=== PATIENT | female | born 1985 | race Caucasian/White ===

== ENCOUNTER 2016-09-28 10:30 | Emergency (ER) | payer MEDICAID, OTHER ==
[~2016-09-28] VITALS: Ht 160 cm; Wt 63.0 kg
[~2016-09-28 10:30] MED LIST: CIPR500T4 PO
[2016-09-28 10:31] VITALS: Ht 160 cm; Wt 63.0 kg
[2016-09-28] MEDS ORDERED: ACETAMINOPHEN 500 MG TAB PO STA (10:53)
[2016-09-28] MEDS ORDERED: IBUPROFEN 600 MG TAB PO ONE (11:00)
--- NOTE | 2016-09-28 11:01 | ERD ---
ER Documentation Chief Complaint Date/Time DATE: 09/28/16 TIME: 10:59 Chief Complaint FLU LIKE SYMPTOMS SINCE MONDAY, BODY ACHES, FEVER HPI 30-year-old female otherwise healthy comes emergency department history of fever for the past 2 days with generalized myalgias, and bilateral flank pain. She states that she had a temperature that started after returning from [place] on Monday, she has been taking Tylenol and the last time was at 3 AM this morning. She complains of frontal headache, generalized body pains. She has not had any cough, runny nose, sore throat. She denies vomiting or diarrhea. She reports that her regular vaccinations are up-to-date. ROS All systems reviewed and are negative except as per history of present illness. Medications Home Meds Active Scripts Ibuprofen* (Motrin*) 600 Mg Tab, 600 MG PO Q6, #30 TAB Prov:DAMON RICHARDSON PA-C 09/28/16 Cephalexin* (Keflex*) 500 Mg Capsule, 500 MG PO TID for 10 Days, CAP Prov:DAMON RICHARDSON PA-C 09/28/16 Ciprofloxacin Hcl* (Ciprofloxacin Hcl*) 500 Mg Tablet, 500 MG PO BID for 3 Days , TAB Prov:YESSI CESPEDES NP 06/15/15 Allergies Allergies: Coded Allergies: No Known Allergy (Unverified , 03/30/11) PMhx/Soc Medical and Surgical Hx: pt denies Medical Hx, pt denies Surgical Hx Hx Miscellaneous Medical Probl: No (DENIES SURGERIES/PMH) Hx Alcohol Use: No Hx Substance Use: No Hx Tobacco Use: No Physical Exam Vitals Vital Signs Date Time Temp Pulse Resp B/P Pulse Ox O2 Delivery O2 Flow Rate FiO2 09/28/16 10:31 100.8 100 20 101/52 99 Physical Exam General: Well-developed, well-nourished. The patient appears in no acute distress. HEENT: Head is normocephalic, atraumatic. No scleral icterus. Pupils are equal , round, and reactive. Oral mucous membranes are moist. No pharyngeal erythema. Neck: Supple. Nontender. Lungs: Clear to auscultation. Normal air movement. Heart: Regular rate and rhythm. S1 and S2 are normal. No murmurs, gallops, or rubs. Abdomen: Soft, nontender, nondistended. Bowel sounds are normoactive. Extremities: No clubbing or cyanosis. Normal pulses. Moving extremities x 4. No weakness. Neurologic: Alert and oriented 3. No focal deficits. Skin: Normal turgor. No rash or lesions. Results 24 hrs Laboratory Tests Test 09/28/16 11:07 Urine Color YELLOW Urine Clarity CLOUDY Urine pH 7.0 Urine Specific [place] 1.008 Urine Ketones NEGATIVEmg/dL Urine Nitrite POSITIVEmg/dL Urine Bilirubin NEGATIVEmg/dL Urine Urobilinogen NEGATIVEmg/dL Urine Leukocyte Esterase 2+Joel/ul Urine Microscopic RBC 2/HPF Urine Microscopic WBC 15/HPF Urine Squamous Epithelial Cells MODERATE/HPF Urine Hemoglobin 1+mg/dL Urine Glucose NEGATIVEmg/dL Urine Total Protein NEGATIVEmg/dl Current Medications Medications (Trade) Dose Ordered Sig/Honey Route PRN Reason Start Time Stop Time Status Last Admin Dose Admin Ibuprofen (Motrin) 600 mg ONCE ONCE PO 09/28/16 11:00 09/28/16 11:01 DC 09/28/16 11:14 Acetaminophen (Tylenol Tab) 500 mg ONCE STAT PO 09/28/16 10:53 09/28/16 10:57 DC 09/28/16 11:13 Ceftriaxone Sodium (Rocephin) 1 gm ONCE ONCE IM 09/28/16 12:00 09/28/16 12:01 Lidocaine (Xylocaine 1% (Mdv) 20 ml) 2 ml ONCE ONCE IM 09/28/16 12:00 09/28/16 12:01 DIAGNOSTIC IMAGING REPORT Patient: LUISA ORR : 1985 Age: 30 Sex: F MR #: [id number] DOS: 09/28/16 1053 Ordering MD: DAMON RICHARDSON PA-C Location: [facility] Room/Bed: PROCEDURE: XR Chest AP portable CLINICAL INDICATION: Fever TECHNIQUE: An AP portable radiograph of the chest was submitted. COMPARISON: 09/02/2007 FINDINGS: Support Hardware: None Cardiovascular: The cardiovascular silhouette appears unremarkable. Lung Collier: The lung collier appear clear with no nodule, alveolar infiltrate, or interstitial prominence evident. Pleural Spaces: No pneumothorax or pleural effusion is identified. Osseous Structures: The osseous structures appear intact. Soft Tissues: The soft tissues appear unremarkable. IMPRESSION: Stable and unremarkable portable chest. Physician Kayy Date Time Electronically viewed and signed by Eduin Burger Physician on 09/28/2016 11:21 RH/ CC: DAMON RICHARDSON PA-C Procedures/MDM ED course: Patient was given Tylenol as well as Motrin. Urine was negative. Patient was found to have nitrite positive urine, and was given Rocephin 1 g IM. Medical decision making: This is a 30-year-old female comes in with a history of fever myalgias for 2 days, patient's workup includes evidence of urinary tract infection, and she has a history of fever, and she presents with febrile illness and will be treated as a pyelonephritis. She has flank pain bilaterally , with a fever and headache. Chest x-ray was performed to rule out pneumonia, that was normal. I doubt sepsis, kidney stones, septic kidney stones, Acute hepatobiliary process, hepatitis, and among others. Departure Diagnosis: Primary Impression: Pyelonephritis Condition: Good DAMON RICHARDSON PA-C Sep 28, 2016 11:00
--- NOTE | 2016-09-28 11:22 | RADRPT ---
PROCEDURE: XR Chest AP portable CLINICAL INDICATION: Fever TECHNIQUE: An AP portable radiograph of the chest was submitted. COMPARISON: 09/02/2007 FINDINGS: Support Hardware: None Cardiovascular: The cardiovascular silhouette appears unremarkable. Lung Yrok: The lung york appear clear with no nodule, alveolar infiltrate, or interstitial promi nence evident. Pleural Spaces: No pneumothorax or pleural effusion is identified. Osseous Structures: The osseous structures appear intact. Soft Tissues: The soft tissues appear unremarkable. IMPRESSION: Stable and unremarkable portable chest. Physician Kayy Date Time Electronically viewed and signed by Eduin Burger Physician on 09/28/2016 11:21 /
[2016-09-28 11:31] LABS: ADD UMIC YES; UR ASCORBIC ACID NEGATIVE (NEGATIVE); UR BILIRUBIN (Dip) NEGATIVE (NEGATIVE); UR BLOOD (Dip) 1+ mg/dL (NEGATIVE); UR CLARITY CLOUDY (CLEAR); UR COLOR YELLOW (YELLOW); UR GLUCOSE (Dip) NEGATIVE (NEGATIVE); UR KETONES (Dip) NEGATIVE (NEGATIVE); UR LEUKOCYTE ESTERASE (Dip) 2+ Leu/ul (NEGATIVE); UR NITRITE (Dip) POSITIVE (NEGATIVE); UR RBC 2 /HPF (0-5); UR SPECIFIC GRAVITY (Dip) 1.008 (1.003-1.030); UR SQUAMOUS EPITHELIAL CELL MODERATE /HPF (FEW); UR TOTAL PROTEIN (Dip) NEGATIVE (NEGATIVE); UR UROBILINOGEN (Dip) NEGATIVE (NEGATIVE)
[2016-09-28] MEDS ORDERED: CEPH-443 PO (11:38)
[2016-09-28] MEDS ORDERED: IBUP-1542 PO (11:38)
[2016-09-28] MEDS ORDERED: LIDOCAINE 1% (MDV) 20 ML INJ IM ONE (12:00)
[2016-09-28] MEDS ORDERED: CEFTRIAXONE 1 GM INJ IM ONE (12:00)
[2016-09-28] MEDS ORDERED: DIPHENHYDRAMINE 25 MG CAP PO ONE ×2 (12:30→13:00)
== END 2016-09-28 13:05 | disposition home or self-care (01) ==
LOC: FTE 10:30
DX: N12 Tubulo-interstitial nephritis, not specified as acute or chronic (principal)
CPT/HCPCS: 71010; 81001; 96372; J0696; Z7502; Z7610